=== PATIENT | female | born 1985 | race Caucasian/White ===

== ENCOUNTER 2022-05-28 02:34 | Emergency (ER) | payer BC, MEDICAID ==
[~2022-05-28 02:34] MED LIST: FLO0.4C PO; HYDR-4383 PO; NAPR-1154 PO
== END 2022-05-28 03:00 | disposition left against medical advice (07) ==
LOC: ER 02:35
DX: R68.84 Jaw pain (principal); Z53.21 Procedure and treatment not carried out due to patient leaving prior to being seen by health care provider